=== PATIENT | male | born 1950 | race Caucasian/White ===

== ENCOUNTER → 2017-07-16 11:55 | Outpatient (CLI) | payer MEDICARE, OTHER, SELFPAY ==
--- NOTE | 2017-07-16 | DI.CT.S_ITS ---
PROCEDURE: CT CHEST ABD PEL W CON INDICATIONS: NEOPLASM OF BLADDER TECHNIQUE: After the administration of oral and intravenous contrast, 5 mm thick sections acquired from the lung apices to the symphysis. 5 mm coronal and sagittal reformats were performed, with additional 7 mm coronal MIP reformats through the lungs. For radiation dose reduction, the following was used: automated exposure control, adjustment of mA and/or kV according to patient size. COMPARISON: [facility], CT, IVP (ABD & PEL WWO CONTRAST), 04/06/2017, 12:33. Outside Film, CT, CT CHEST WITHOUT CONTRAST, 05/14/2017, 11:11. [facility], CT, CT CHEST ABDOMEN PELVIS WITH CONTRAST, 05/31/2017, 14:29. FINDINGS: Image quality: Excellent. CHEST: Lungs and pleura: Anterior left upper lobe pulmonary nodule has decreased from 16 mm to 8 mm since last exam. Medial right lower lobe pulmonary nodule has decreased from 10 mm to 5 mm. Bilateral nodules in the posterior lower lobes show evidence of central necrosis and have decreased in size from 19 mm to 10 mm on the right and 14 mm to 8 mm on the left. Similar reduction in size is evident in additional smaller nodules. No new nodules or acute airspace opacities. No pleural effusions or pneumothorax. Central and peripheral airways appear patent and normal in caliber. Mediastinum: Heart size is normal. No pericardial effusion. No mediastinal or hilar adenopathy by size criteria. Thoracic aorta and central pulmonary arteries are normal in size. Esophagus is normal in caliber. No hiatal hernia. Chest wall: Left-sided port with tip in the SVC. No axillary or supraclavicular adenopathy by size criteria. Thyroid gland appears normal. Bilateral gynecomastia. ABDOMEN: Solid organs: Liver is normal in size and enhancement. Biliary system is non dilated. Pancreas is atrophic. Spleen is mildly enlarged at 13.3 cm craniocaudal, normal in enhancement. No adrenal nodules. Kidneys demonstrate normal size and enhancement, without hydronephrosis. Peritoneum and bowel: Small bowel loops demonstrate normal wall thickness and caliber. The normal appendix. There is new diffuse wall thickening in the cecum and proximal ascending colon, indeterminate No fat stranding, free fluid or free air. Nodes and vessels: Numerous surgical clips surround the inferior vena cava, liver margin and purnima hepatis, gallbladder surgically absent. No retroperitoneal or mesenteric adenopathy by size criteria. Aorta and inferior vena cava are normal in size. Miscellaneous: No ventral hernias. PELVIS: Genitourinary: Bladder wall tumor has decreased in size, wall thickness at 9 mm compared to 17 mm on prior. Miscellaneous: Fat filled left inguinal hernias, no adenopathy. Bones: No suspicious bony lesions. No vertebral body compression fractures. IMPRESSION: 1. Diminished size of the urinary bladder cancer. Diminished size of multiple pulmonary metastases. No evidence of new metastatic disease. 2. Diffuse wall thickening of the cecum and proximal ascending colon, nonspecific and compatible with focal colitis. No appreciable pericecal fatty infiltration or fluid collection. Normal appendix. 3. Status post cholecystectomy. 4. Mild splenomegaly. 5. Fat filled left inguinal hernia. Dictated by: Mickey Wolf M.D. on 07/16/2017 at 13:38 Approved by: Mickey Wolf M.D. on 07/16/2017 at 14:02
== END ==
PROVIDERS: PCP Family Medicine; Visit Provider Internal Medicine Hematology & Oncology
DX: C67.9 Malignant neoplasm of bladder, unspecified (principal); C78.00 Secondary malignant neoplasm of unspecified lung; K40.90 Unilateral inguinal hernia, without obstruction or gangrene, not specified as recurrent
CPT/HCPCS: 71260; 74177; Q9967

== ENCOUNTER → 2017-09-03 10:58 | Outpatient (CLI) | payer MEDICARE, OTHER, SELFPAY ==
--- NOTE | 2017-09-03 | DI.CT.S_ITS ---
PROCEDURE: CT CHEST ABD PEL W CON INDICATIONS: MALIGNANT NEOPLASM OF BLADDER TECHNIQUE: After the administration of oral and intravenous contrast, 5 mm thick sections acquired from the lung apices to the symphysis. 5 mm coronal and sagittal reformats were performed, with additional 7 mm coronal MIP reformats through the lungs. For radiation dose reduction, the following was used: automated exposure control, adjustment of mA and/or kV according to patient size. COMPARISON: [facility], CT, CT CHEST ABD PEL W CON, 07/16/2017, 12:58. FINDINGS: Image quality: Excellent. CHEST: Lungs and pleura: Multiple bilateral pulmonary nodules are stable to slightly decreased in size from prior exam, with the largest measuring up to 8 mm in the left upper lobe. No pleural effusion or pneumothorax. Mediastinum: Heart size is normal. There is a small pericardial effusion. There is no mediastinal or hilar lymphadenopathy. Chest wall: No axillary or supraclavicular adenopathy by size criteria. Thyroid gland is unchanged from prior exam. There is bilateral gynecomastia. ABDOMEN: Solid organs: Postsurgical changes surrounding the inferior vena cava are stable. No intrahepatic lesions. Gallbladder surgically absent. No intrahepatic or extra hepatic biliary ductal dilatation. There is diffuse fatty atrophy of the pancreatic parenchyma. The spleen appears unremarkable. No abnormal adrenal nodules are identified. There is mild bilateral perinephric fat stranding. No hydronephrosis. Peritoneum and bowel: Previously noted cecal wall thickening is decreased from prior exam. Nodes and vessels: No retroperitoneal or mesenteric adenopathy by size criteria. Aorta and inferior vena cava are normal in size. PELVIS: Genitourinary: There is diffuse but stable bladder wall thickening given the degree of distention. Miscellaneous: There is a fat-containing left indirect inguinal hernia. Bones: Subcentimeter sclerotic foci within the right sacrum are stable when compared with prior exam, and may represent bone islands rather than metastatic disease. IMPRESSION: #1. Multiple bilateral pulmonary metastases are stable to slightly decreased in size from prior exam. Stable diffuse bladder wall thickening. #2. Interval decrease in previously noted diffuse cecal wall thickening, suggesting improving colitis. Attention on followup exams recommended. Dictated by: Kimani Reeves M.D. on 09/03/2017 at 13:21 Approved by: Kimani Reeves M.D. on 09/03/2017 at 13:33
[2017-09-03 11:54] LABS: Alanine Aminotransferase 36 IU/L (21-72); Albumin 4.5 g/dL (3.5-5.0); Albumin Globulin Ratio 1.8 (1.0-2.8); Alkaline Phosphatase 74 U/L (38-126); Aspartate Aminotransferase 28 IU/L (17-59); Bilirubin Total 1.2 mg/dL (0.2-1.3); Blood Urea Nitrogen 21 mg/dL (9-20); Calcium 9.1 mg/dL (8.4-10.2); Carbon Dioxide 31 mmol/L (22-32); Chloride 103 mmol/L (98-107); Estimated Glomerular Filt Rate > 60.0 mL/min (>60); Globulin 2.5 g/dL (1.7-4.1); Glucose 110 mg/dL (80-110); HEMOLYSIS < 15 (0-50); Lactate Dehydrogenase 548 U/L (313-618); Magnesium 2.3 mg/dL (1.6-2.3); Potassium 4.8 mmol/L (3.4-5.1); Sodium 142 mmol/L (137-145)
[2017-09-03 12:07] LABS: Hematocrit 33.1 % (41-53); Hemoglobin 11.4 g/dL (13.5-17.5); Mean Corpuscular HGB Conc 34.5 % (30-36); Mean Corpuscular Volume 104.4 fL (80-100); Platelet Count 185 X10^3/uL (150-400); Red Blood Cell Count 3.17 X10^6/uL (4.5-5.9); Red Cell Distribution Width 18.9 % (11.6-14.8); White Blood Cell Count 5.6 X10^3/uL (4.5-11.0)
[2017-09-03 12:08] LABS: Add Manual Diff / Slide Review YES
[2017-09-03 12:48] LABS: Neutrophils Absolute Manual 4032 /uL (3000-5900); Nucleated Red Blood Cells 1 #/Diff; Total Cells Counted 100
[2017-09-03 12:49] LABS: Anisocytosis 2+; Macrocytosis 1+
== END ==
PROVIDERS: PCP Family Medicine; Visit Provider Internal Medicine Hematology & Oncology
DX: C67.9 Malignant neoplasm of bladder, unspecified (principal); C78.02 Secondary malignant neoplasm of left lung; C78.01 Secondary malignant neoplasm of right lung
CPT/HCPCS: 36415; 71260; 74177; 80053; 83615; 83735; 85025; Q9967

== ENCOUNTER → 2017-10-15 10:19 | Outpatient (CLI) | payer MEDICARE, OTHER, SELFPAY ==
--- NOTE | 2017-10-15 | DI.CT.S_ITS ---
PROCEDURE: CT CHEST ABD PEL W CON INDICATIONS: NEOPLASM OF BLADDER SURVEILLANCE TECHNIQUE: After the administration of oral and intravenous contrast, 5 mm thick sections acquired from the lung apices to the symphysis. 5 mm coronal and sagittal reformats were performed, with additional 7 mm coronal MIP reformats through the lungs. For radiation dose reduction, the following was used: automated exposure control, adjustment of mA and/or kV according to patient size. COMPARISON: [facility], CT, CT CHEST ABD PEL W CON, 09/03/2017, 12:35. FINDINGS: Image quality: Excellent. CHEST: Lungs and pleura: 6 subcentimeter nodules are again seen scattered in bilateral lung browne measures up to 7 mm in size in anterior aspect of left apex, unchanged in size and appearance from most recent study. No new pulmonary nodule or mass is seen. No pleural effusions or pneumothorax. Central and peripheral airways appear patent and normal in caliber. Mediastinum: Heart size is normal. No pericardial effusion. No mediastinal or hilar adenopathy by size criteria. Thoracic aorta and central pulmonary arteries are normal in size. Esophagus is normal in caliber. Small hiatal hernia is again seen. Chest wall: No axillary or supraclavicular adenopathy by size criteria. Thyroid gland is unchanged in appearance compared to previous study. Left chest wall Port-A-Cath tip is in the region of SVC. ABDOMEN: Solid organs: Liver is normal in size and enhancement. Mild hepatic steatosis is seen. Gallbladder is surgically absent. Biliary system is non dilated. Pancreas is atrophic, unchanged from previous study. Spleen is mildly enlarged. No discrete splenic lesion is noted. No adrenal nodules. Kidneys demonstrate normal size and enhancement, without hydronephrosis. Peritoneum and bowel: There is no bowel obstruction. No free fluid or free air. Previously noted cecal wall thickening is again seen with mild narrowing of the lumen. No definite cecal wall mass is noted. Nodes and vessels: No retroperitoneal or mesenteric adenopathy by size criteria. Aorta and inferior vena cava are normal in size. Post surgical changes in the proximal SVC are again seen. Miscellaneous: No ventral hernias. PELVIS: Genitourinary: Diffuse bladder wall thickening is again seen, not significant changed in appearance from previous study. Miscellaneous: Fat-containing left inguinal hernia is again seen. No pelvic adenopathy is noted. Bones: Previously noted subcentimeter sclerotic foci within right sacrum are unchanged in size and appearance. No new suspicious bony lesion is noted. No acute fracture or dislocation. IMPRESSION: 1. Stable bilateral subcentimeter pulmonary nodules, unchanged from previous study. No new pulmonary nodule or mass is identified. Bilateral lungs are otherwise clear. 2. Stable appearing diffuse cecal wall beginning which may indicate colitis. No definite mass is seen. 3. No evidence of adenopathy in chest, abdomen or pelvis. 4. Mild splenomegaly, no discrete splenic lesion. 5. Diffuse bladder wall thickening, not significantly changed from previous study. No hydronephrosis. Dictated by: Speedy Wood M.D. on 10/15/2017 at 14:18 Approved by: Speedy Wood M.D. on 10/15/2017 at 14:53
[2017-10-15 10:58] LABS: Blood Urea Nitrogen 22 mg/dL (9-20); Estimated Glomerular Filt Rate > 60.0 mL/min (>60)
== END ==
PROVIDERS: PCP Family Medicine; Visit Provider Internal Medicine Hematology & Oncology
DX: C67.9 Malignant neoplasm of bladder, unspecified (principal); R91.8 Other nonspecific abnormal finding of lung field; R16.1 Splenomegaly, not elsewhere classified
CPT/HCPCS: 36415; 71260; 74177; 82565; 84520; Q9967

== ENCOUNTER → 2017-11-27 09:48 | Outpatient (CLI) | payer MEDICARE, OTHER, SELFPAY ==
--- NOTE | 2017-11-27 | DI.CT.S_ITS ---
PROCEDURE: CT CHEST ABD PEL W CON INDICATIONS: NEOPLASM OF BLADDER TECHNIQUE: After the administration of oral and intravenous contrast, 5 mm thick sections acquired from the lung apices to the symphysis. 5 mm coronal and sagittal reformats were performed, with additional 7 mm coronal MIP reformats through the lungs. For radiation dose reduction, the following was used: automated exposure control, adjustment of mA and/or kV according to patient size. COMPARISON: [facility], CT, CT CHEST ABD PEL W CON, 10/15/2017, 11:47. FINDINGS: Image quality: Excellent. CHEST: Lungs and pleura: No acute airspace opacities. Currently a total of 9 discrete bilateral pulmonary nodules can be seen within the lung parenchyma, all of which were previously present, all of which have increased in size and several of which were not previously detectable without benefit of the current CT showing enlargement to the degree that they could be accurately detected by CT scanning prophylactically. These range in size from 2 mm to 1.2 cm, and each has enlarged by 1-3 mm in all dimensions. No pleural effusions or pneumothorax. Central and peripheral airways appear patent and normal in caliber. Mediastinum: Heart size is normal. No pericardial effusion. No mediastinal or hilar adenopathy by size criteria. Thoracic aorta and central pulmonary arteries are normal in size. Esophagus is normal in caliber. No hiatal hernia. Chest wall: No axillary or supraclavicular adenopathy by size criteria. Thyroid gland appears normal. ABDOMEN: Solid organs: Liver is normal in size and enhancement. Gallbladder has been previously resected. Biliary system is non dilated. Pancreas enhances normally. Spleen is normal in size and enhancement. No adrenal nodules. Kidneys demonstrate normal size and enhancement, without hydronephrosis. Peritoneum and bowel: Bowel loops demonstrate normal wall thickness and caliber. No free fluid or air. Nodes and vessels: No retroperitoneal or mesenteric adenopathy by size criteria. Aorta and inferior vena cava are normal in size. Miscellaneous: No ventral hernias. PELVIS: Genitourinary: Bladder wall thickness is normal. The bladder is well filled by urine, allowing better visualization of the malignant-appearing mass enlarging the bladder wall thickness at the mid bladder level, left posterolateral border. This mass has tapering borders both anteriorly and posteriorly and has an estimated maximal AP dimension including the tapering of up to 5.1 cm AP, 1.3 cm transverse, and 5.6 cm craniocaudad. There is indistinct margination of the lateral border of this mass, with what appears to be direct extension of a small amount of tumor into the adjacent perivesicular fat, best seen on series 4 image 39 (coronal reformat imaging). The mass is immediately adjacent to the course of the far distal left ureter just above its insertion. Miscellaneous: No inguinal hernias or adenopathy. Bones: No suspicious bony lesions. No vertebral body compression fractures. IMPRESSION: 1. There are now 9 visualized pulmonary metastatic lesions, 6 of which were visualized previously 10/15/17. Each of these lesions show definite but mild interval enlargement as discussed above and 3 of these lesions now become accurately detectable by CT scanning despite there presents as a minute radiodensity previously. At the right lung base the largest lesion has enlarged by at least 3 mm in all dimensions but generally the enlargement is 1-2 mm in each dimension. 2. Mild interval enlargement of a left posterolateral bladder wall mass which is fusiform, and appears to penetrate into the perivesicular extraperitoneal fat along the left margin of the bladder mass, but only several millimeters. This mass shows increased enhancement and a small amount of dystrophic calcification along its luminal border. No adjacent or regional adenopathy has developed. 3. Left-sided Port-A-Cath extends into the superior vena cava and into the upper aspect of the right atrium. Dictated by: Neville Vail M.D. on 11/27/2017 at 15:40 Approved by: Neville Vail M.D. on 11/27/2017 at 15:57
[2017-11-27 10:17] LABS: BUN Creatinine Ratio 25.6 (6-22); Blood Urea Nitrogen 23 mg/dL (9-20); Calcium 9.2 mg/dL (8.4-10.2); Carbon Dioxide 34 mmol/L (22-32); Chloride 102 mmol/L (98-107); Estimated Glomerular Filt Rate > 60.0 mL/min (>60); Glucose 113 mg/dL (80-110); HEMOLYSIS < 15 (0-50); Potassium 4.5 mmol/L (3.4-5.1); Sodium 144 mmol/L (137-145)
== END ==
PROVIDERS: PCP Family Medicine; Visit Provider Internal Medicine Hematology & Oncology
DX: C67.9 Malignant neoplasm of bladder, unspecified (principal); C78.00 Secondary malignant neoplasm of unspecified lung
CPT/HCPCS: 36415; 71260; 74177; 80048; Q9967

== ENCOUNTER → 2018-01-22 11:00 | Outpatient (CLI) | payer MEDICARE, OTHER, SELFPAY ==
--- NOTE | 2018-01-22 | DI.CT.S_ITS ---
PROCEDURE: CT CHEST ABD PEL W CON INDICATIONS: Neoplasm of unspecified behavior of bladder TECHNIQUE: After the administration of intravenous contrast, 5 mm thick sections acquired from the lung apices to the symphysis. 5 mm coronal and sagittal reformats were performed, with additional 7 mm MIP reformats through the lungs. For radiation dose reduction, the following was used: automated exposure control, adjustment of mA and/or kV according to patient size. COMPARISON: [facility], CT, CT CHEST ABD PEL W CON, 11/27/2017, 11:20. FINDINGS: Image quality: Excellent. CHEST: Lungs and pleura: No acute consolidation. There are numerous bilateral scattered pulmonary metastases which are mostly unchanged although there is slight interval enlargement of a dominant right nodule in the right lower lobe measuring 1.7 x 1.8 cm, previously 1.5 x 1.3 cm. There is also slight interval enlargement of a left apical nodule measure 1.8 x 1.8 cm, presumably 4 x 1.4 cm No pleural effusions or pneumothorax. Central and peripheral airways appear patent and normal in caliber. Mediastinum: Heart size is normal. No pericardial effusion. No mediastinal or hilar adenopathy by size criteria. Thoracic aorta and central pulmonary arteries are normal in size. Esophagus is normal in caliber. No hiatal hernia. Chest wall: No axillary or supraclavicular adenopathy by size criteria. Thyroid gland negative. ABDOMEN: Solid organs: Liver is normal in size and enhancement. Gallbladder not seen presumably surgically absent. Biliary system is non dilated. Pancreas enhances normally. Spleen is normal in size and enhancement. No adrenal nodules. Kidneys demonstrate normal size and enhancement, without hydronephrosis. Peritoneum and bowel: Bowel loops demonstrate normal wall thickness and caliber. No free fluid or air. Nodes and vessels: No retroperitoneal or mesenteric adenopathy by size criteria. Aorta and inferior vena cava are normal in size. Miscellaneous: No ventral hernias. PELVIS: Genitourinary: Left posterior bladder wall thickening as before, grossly unchanged. Nonspecific low attenuation nodule measuring 9 mm seen adjacent to the anterior left aspect of the bladder on image 120 series 2, technically indeterminate. Miscellaneous: Small fat-containing left inguinal hernia. Bones: No suspicious bony lesions. Subcentimeter sclerotic foci present within the right sacral ala. These are unchanged. No vertebral body compression fractures. IMPRESSION: Redemonstration of diffuse bilateral pulmonary metastases, with slight interval enlargement as detailed above Unchanged appearance of left posterior bladder wall thickening. Elsewhere, grossly stable examination. Dictated by: Markie Hamilton M.D. on 01/22/2018 at 16:46 Approved by: Markie Hamilton M.D. on 01/22/2018 at 16:59
== END ==
PROVIDERS: Family Provider Urology; PCP Family Medicine; Visit Provider Internal Medicine Hematology & Oncology
DX: D49.4 Neoplasm of unspecified behavior of bladder (principal); C34.92 Malignant neoplasm of unspecified part of left bronchus or lung; C34.91 Malignant neoplasm of unspecified part of right bronchus or lung
CPT/HCPCS: 71260; 74177; Q9967

== ENCOUNTER → 2018-04-22 07:51 | Outpatient (CLI) | payer MEDICARE, OTHER, SELFPAY ==
--- NOTE | 2018-04-22 | DI.CT.S_ITS ---
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 5 mm coronal and sagittal reformats were performed, with additional 7 mm coronal MIP reformats through the lungs. For radiation dose reduction, the following was used: automated exposure control, adjustment of mA and/or kV according to patient size. COMPARISON: [facility], CT, CT CHEST ABD PEL W CON, 01/22/2018, 12:07. [facility], CT, CT CHEST ABD PEL W CON, 11/27/2017, 11:20. FINDINGS: Image quality: Excellent. CHEST: Lungs and pleura: A lobulated lung mass anterior left apex has enlarged from 01/22/18 from 1.8 cm to now 2.4 cm. A posterior right upper lobe ovoid nodule seen on series 3 image 19 is not enlarged. A posterior medial left superior segment nodule abutting the pleural surface has enlarged from 9 mm to 12 mm (series 3 image 22 a lateral right upper lobe nodule slightly more inferiorly seen on image 24 has only slightly additional pulmonary nodules at the lung bases are again seen bilaterally, a number of which have not enlarged but a lobulated mass at the right lung base just above the diaphragm level has enlarged from 1.9 cm in maximal dimension to 2.3 cm currently. No pleural effusions or pneumothorax. Central and peripheral airways appear patent and normal in caliber. Mediastinum: Heart size is normal. No pericardial effusion. No mediastinal or hilar adenopathy by size criteria. Thoracic aorta and central pulmonary arteries are normal in size. Esophagus is normal in caliber. No hiatal hernia. Chest wall: No axillary or supraclavicular adenopathy by size criteria. Thyroid gland appears normal were well visualized. ABDOMEN: Solid organs: Liver is normal in size and enhancement. Gallbladder appears resected. Biliary system is non dilated. Pancreas enhances normally. Spleen is normal in size and enhancement. No adrenal nodules. Kidneys demonstrate normal size and a new finding of asymmetric enhancement, diminished on the left, with a new finding of moderate left hydronephrosis. Peritoneum and bowel: Bowel loops demonstrate normal wall thickness and caliber. No free fluid or air. Nodes and vessels: No retroperitoneal or mesenteric adenopathy by size criteria. Aorta and inferior vena cava are normal in size. Miscellaneous: No ventral hernias. PELVIS: Genitourinary: Bladder wall thickness is normal. Miscellaneous: No inguinal hernias or adenopathy. Note is made of further enlargement of a mass within the bladder along the mucosal surface at the distal left ureteral insertion, now measuring up to 5.5 cm oblique AP and 2.4 cm transverse. This has at least doubled in volume when compared to the most recent CT through this area 01/22/18. Bones: No suspicious bony lesions. No vertebral body compression fractures. IMPRESSION: 1. Multifocal pulmonary metastatic disease with definite mild to moderate interval enlargement in size of a number of the lesions present. Additional lesions show no definite enlargement. The largest mass currently identified is at the right lung base, has enlarged, but no definite new lesions are seen. 2. New finding of moderate hydronephrosis left kidney with hydroureter extending to the bladder level. Renal cortical enhancement is globally mildly diminished on the left. The mass lesion present within the bladder lumen that covers the ureteral insertion into the bladder on the left has definitely enlarged, approximately doubling in overall volume with reference to the comparison CT from 01/22/18. Dictated by: Neville Vail M.D. on 04/22/2018 at 11:46 Approved by: Neville Vail M.D. on 04/22/2018 at 11:59
== END ==
PROVIDERS: Family Provider Urology; PCP Family Medicine; Visit Provider Internal Medicine Hematology & Oncology
DX: C67.9 Malignant neoplasm of bladder, unspecified (principal); C78.00 Secondary malignant neoplasm of unspecified lung; N13.30 Unspecified hydronephrosis
CPT/HCPCS: 71260; 74177; Q9967

== ENCOUNTER → 2018-05-20 14:36 | Outpatient (CLI) | payer MEDICARE, OTHER, SELFPAY ==
--- NOTE | 2018-05-20 | DI.MRI.S_ITS ---
PROCEDURE: MR HEAD/BRAIN WO CON INDICATIONS: URINARY BLADDER CANCER. NEW ONSET OF LEFT SIDED HEADACHES TECHNIQUE: Noncontrast axial T1 spin echo, axial T2 fast spin echo, sagittal and axial FLAIR, coronal T2 fast spin echo, axial gradient echo, axial diffusion and ADC through the brain. COMPARISON: None. FINDINGS: Image quality: Excellent. CSF Spaces: Basal cisterns are patent. No extra-axial fluid collections. Ventricles are normal in size and shape. Brain: There is a 2.3 x 2.3 x 3.1 cm left parietal mass which has cystic and solid components. There is a 1.2 x 1.6 x 1.7 cm in anomaly cystic mass in the left parietal lobe posterior and inferior to the previous described left parietal lobe lesion. Vasogenic edema is noted adjacent to the left parietal mass is which is having mass effect on the occipital horn with the left lateral ventricle. No intracranial hemorrhage. Rodríguez/white matter interface is normal. Brainstem appears normal. Diffusion-weighted images demonstrate no acute ischemic insult. No chronic ischemic insults. Normal intravascular flow voids are present. Skull and face: Calvarium has normal marrow signal. Orbits appear normal. Sinuses: Small polyp noted in the right maxillary sinus. The mastoids are clear. IMPRESSION: 1. Probable 2.3 x 2.3 x 3.1 and 1.1 x 1.6 x 1.7 cm left parietal metastatic lesions. 2. Vasogenic edema associated with probable left parietal metastatic lesions is having local mass effect on the occipital horn of left lateral ventricle. 3. Findings discussed with Sinai Rendon RN at Dr. Ferguson's office on 05/20/2018 at 1403 hrs. Dictated by: Sujey Oliveira MD, PhD on 05/20/2018 at 15:53 Approved by: Sujey Oliveira MD, PhD on 05/20/2018 at 16:04
--- NOTE | 2018-05-20 | DI.CT.S_ITS ---
PROCEDURE: CT CHEST W CON INDICATIONS: URINARY BLADDER CANCER TECHNIQUE: After the administration of intravenous contrast, 5 mm thick sections acquired from the pulmonary apices to the posterior costophrenic angles. 7 mm thick coronal and sagittal MIP reformats were acquired. For radiation dose reduction, the following was used: automated exposure control, adjustment of mA and/or kV according to patient size. COMPARISON: [facility], CT, CT CHEST ABD PEL W CON, 04/22/2018, 9:06. FINDINGS: Image quality: Excellent. Lungs and pleura: Previously described 2.4 cm lobulated mass in anterior medial left apex no measures 2.6 x 2.3 cm in size series 3 image 16. Previously described lateral right upper lobe nodule also increased in size from 6 mm to 9 mm on the current study series 3 image 19. 6 mm nodule in lateral aspect of right upper lobe now measures 8 mm in size series 3 image 24. Previously described medial left superior segment nodule now measures 14 mm in size compared to 12 mm on previous study series 3 image 22. The 4 mm nodule in anterior medial aspect of right middle lobe now measures 3 mm in size series 3 image 32. 8 and 10 mm nodule is also noted in right and lower lobe series 3 image 32, previously measured as 4 and 7 mm in size. 1.8 cm posterior left lower lobe nodule is seen previously measures 14 mm in size series 3 image 39. 12 and 9 mm nodules are noted in posterior right lower lobe previously measures 10 and 6 mm series 3 image 39 and 40. Previously described 2.3 cm lobulated mass in central right lower lobe near right lung base now measures 2.7 x 2.6 cm in size series 3 image 48. No pleural effusions or pneumothorax. Central and peripheral airways are patent and normal in caliber. Mediastinum: Heart size is normal. No pericardial effusion. No mediastinal or hilar adenopathy by size criteria. Thoracic aorta and central pulmonary arteries are normal in size. Esophagus is normal in caliber. No hiatal hernia. Bones and chest wall: No suspicious bony lesions. No vertebral body compression fractures. No axillary or supraclavicular adenopathy by size criteria. Thyroid gland is within normal limits. Abdomen: Visualized upper abdominal solid organs appear normal. Upper abdominal bowel loops are normal in caliber. Numerous surgical clips in right upper quadrant and abdomen are seen. IMPRESSION: 1. Interval further increase in size of patient's known numerous bilateral pulmonary nodules with the largest lesion involving right lower lobe and measures 2.7 x 2.6 cm in size as described above. Finding is suggestive of progression of pulmonary metastatic disease. No pleural effusion or pneumothorax. Airway is patent. 2. No gross mediastinal or hilar lymphadenopathy. Dictated by: Speedy Wood M.D. on 05/20/2018 at 16:44 Approved by: Speedy Wood M.D. on 05/20/2018 at 16:52
== END ==
PROVIDERS: PCP Family Medicine; Visit Provider Internal Medicine Hematology & Oncology
DX: C67.9 Malignant neoplasm of bladder, unspecified (principal); G93.9 Disorder of brain, unspecified; G93.6 Cerebral edema; R91.8 Other nonspecific abnormal finding of lung field
CPT/HCPCS: 70551; 71260; Q9967

== ENCOUNTER 2018-06-09 12:25 | Emergency (ER) | payer MEDICARE, OTHER, SELFPAY ==
[2018-06-09 13:13] VITALS: BP 151/95; PULSE 87; RESP 18; TEMP 37; O2SAT 99
--- NOTE | 2018-06-09 13:58 | PC.NURSE ---
hx of bladder cancer, pt reports urinary retention , only has dribbles. requesting estrada insertion and will follow up with doctors tomorrow. denies fever.
[2018-06-09 14:16] LABS: Bacteria Urine None Seen
[2018-06-09 14:18] LABS: Appearance Urine UA SL CLOUDY; Bilirubin Urine UA NEGATIVE (NEGATIVE); Color Urine UA RED; Glucose Urine UA NEGATIVE (Negative); Ketones Urine UA NEGATIVE (NEGATIVE); Leukocyte Esterase Urine UA TRACE (NEGATIVE); Nitrite Urine UA NEGATIVE (Negative); Occult Blood Urine UA 3+ (Negative); Protein Urine UA 1+ (Negative); Specific Gravity Urine UA 1.015 (1.000-1.035); Urobilinogen Urine UA 0.2 E.U./dL (0.2)
[2018-06-09 14:19] VITALS: BP 137/91; PULSE 73; RESP 16; O2SAT 100
[2018-06-09 14:32] LABS: Culture Indicated Urine Specimen Cultured; RBC Urine >100/HPF (0-5/HPF); Squamous Epithelial Cell Urine None Seen (0-5/HPF); WBC Urine 1-5/HPF (0-5/HPF)
[2018-06-09 15:25] VITALS: BP 121/75; PULSE 65; RESP 16; O2SAT 100
--- NOTE | 2018-06-09 18:56 | ED_ITS ---
HPI - Male Genitourinary <OLVIN Machado - Last Filed: 06/09/18 18:56> General Chief complaint: Urogenital-Male Stated complaint: Hemoteria Time Seen by Provider: 06/09/18 14:48 Source: patient and family Mode of arrival: ambulatory Limitations: no limitations History of Present Illness HPI Narrative: The patient is a 67-year-old male nonsmoker with history of bladder cancer who presents with his for chief complaint of urinary retention. He was not able to urinate for 6 hours. He states that this has happened before and he has needed a catheter. He denies any fevers dysuria urgency or frequency. He states his urine is bloody, which has been consistent since his diagnosis bladder cancer. He denies any abdominal pain other than bladder pressure prior to Hunter insertion. Related Data Home Medications Medication Instructions Recorded Confirmed CA PANTOTHENATE/FOLIC ACID/VIT 1 tab PO QDAY #0 06/13/12 05/10/18 (MULTIVITAMIN) CALCIUM ACETATE (PHOSLO~) 667 mg PO QDAY #0 06/13/12 05/10/18 magnesium oxide 500 mg PO QDAY #0 06/13/12 05/10/18 omega 6-pev-dwl-fish oil [Fish Oil] 1,000 mg PO QDAY #0 05/28/17 05/10/18 sildenafil [Viagra] Unknown #0 05/28/17 05/10/18 acetaminophen 500 mg tablet 325 mg PO PRN #0 tab 05/10/18 05/10/18 tacrolimus 1 mg capsule 0.5 mg PO BID #0 cap 05/10/18 05/10/18 Previous Rx's Medication Instructions Recorded tamsulosin [Flomax] 0.4 mg PO QDAY #90 cap 01/25/[address] See Rx Instructions .ROUTE 05/10/18 .COMPLEX #1 each Allergies Allergy/AdvReac Type Severity Reaction Status Date / Time lactose [LACTOSE] Allergy Unknown Verified 05/10/18 14:13 oxycodone [OXYCODONE] Allergy Unknown Verified 05/10/18 14:13 Review of Systems <OLVIN Machado - Last Filed: 06/09/18 18:56> Review of Systems GENERAL: Denies chills, fatigue, malaise, fever, sweats. HEENT: Denies sinus pain, ear pain, sore throat, difficulty swallowing, dizziness. RESPIRATORY: Denies dyspnea, cough, wheezing, hemoptysis, sputum. CARDIOVASCULAR: Denies chest pain, palpitations, orthopnea, edema, GASTROINTESTINAL: Denies nausea, vomiting, abdominal pain, diarrhea, constipation, melena. : See HPI MUSCULOSKELETAL: denies weakness, joint pain, or bony pain SKIN: Denies rash, skin lesions, or other NEUROLOGIC: Denies weakness, headache, numbness, change in speech, confusion, seizures, incoordination. PSYCHIATRIC: No concerning psychosocial issues. 12 point review of systems is negative except for those stated above PFSH <OLVIN Machado - Last Filed: 06/09/18 18:56> Medical History Bladder cancer (Acute ~04/2017) Pulmonary metastasis (Acute ~04/2017) Pulmonary nodule (Acute ~04/2017) BPH (benign prostatic hyperplasia) (Chronic 2012) Eczema (Chronic 2004) Glaucoma (Chronic Unknown) Hearing loss (Chronic 2011) Hemorrhoids (Chronic 1992) Tinnitus of both ears (Chronic 1991) Liver disease (Resolved 2004) Measles (Resolved ~1960) Mumps (Resolved ~1960) Surgical History Hx of hernia repair (Resolved Unknown) Hx of liver transplant (Resolved 05/2007) Hx of transurethral resection of prostate (Resolved 04/2017) Status post knee surgery (1985) Family History Father No problems noted. Mother No problems noted. Grandmother No problems noted. Social History Smoking Status: Never smoker Family History Father No problems noted. Mother No problems noted. Grandmother No problems noted. Social History Smoking Status: Never smoker Exam <OLVIN Machado - Last Filed: 06/09/18 18:56> Narrative Exam Narrative: GENERAL: This is a well-nourished, well-developed patient, no acute distress HEAD: Atraumatic. Normocephalic. No temporal or scalp tenderness. EYES: Pupils equal round and reactive. Extraocular motions intact. No scleral icterus. No injection or drainage. CARDIOVASCULAR: Regular rate and rhythm RESPIRATORY: Clear to auscultation. Breath sounds equal bilaterally. No wheezes, rales, or rhonchi. No cough. No increased respiratory effort. GASTROINTESTINAL: Abdomen soft, non-tender, nondistended. No hepato- splenomegaly, or palpable masses. No guarding. active bowel sounds. Hunter catheter in place draining bloody urine with no obvious clots. EXTREMITIES: No clubbing, cyanosis, or edema. No joint tenderness, effusion, or edema noted. BACK: Nontender without deformity or crepitance. No flank tenderness. NEURO: AOx3. SKIN: No rash or erythema. Initial Vital Signs Initial Vital Signs: Vital Signs Temperature 98.6 F 06/09/18 13:13 Pulse Rate 87 06/09/18 13:13 Respiratory Rate 18 06/09/18 13:13 Blood Pressure 151/95 H 06/09/18 13:13 Pulse Oximetry 99 06/09/18 13:13 <Esther Kong DO - Last Filed: 06/15/18 19:04> Initial Vital Signs Initial Vital Signs: Vital Signs Temperature 98.6 F 06/09/18 13:13 Pulse Rate 87 06/09/18 13:13 Respiratory Rate 18 06/09/18 13:13 Blood Pressure 151/95 H 06/09/18 13:13 Pulse Oximetry 99 06/09/18 13:13 Course <MARTHA Machado-BC - Last Filed: 06/09/18 18:56> Orders Ordered: ED Orders 06/09/18 14:10 Urinalysis and Microscopic Stat Urine Culture Stat Vital Signs - 8 hr 06/09/18 13:13 06/09/18 14:19 06/09/18 15:25 Temperature 98.6 F Pulse Rate 87 73 65 Respiratory Rate 18 16 16 Blood Pressure 151/95 H Blood Pressure [Left Arm] 137/91 H 121/75 Pulse Oximetry 99 100 100 <DO Jennifer Butler Last Filed: 06/15/18 19:04> Orders Ordered: ED Orders 06/09/18 14:10 Urinalysis and Microscopic Stat Urine Culture Stat Vital Signs - 8 hr 06/09/18 13:13 06/09/18 14:19 06/09/18 15:25 Temperature 98.6 F Pulse Rate 87 73 65 Respiratory Rate 18 16 16 Blood Pressure 151/95 H Blood Pressure [Left Arm] 137/91 H 121/75 Pulse Oximetry 99 100 100 MDM - Male Genitourinary <MARTHA Machado-BC - Last Filed: 06/09/18 18:56> Lab Data Lab Results 06/09/18 Range/Units 14:10 Urine Color Red Urine Appearance Sl cloudy Urine pH 7.0 (4.5-8.0) Ur Specific [place] 1.015 (1.000-1.035) Urine Protein 1+ H (Negative) Urine Glucose (UA) Negative (Negative) g/dL Urine Ketones Negative (NEGATIVE) Urine Occult Blood 3+ H (Negative) Urine Nitrate Negative (Negative) Urine Bilirubin Negative (NEGATIVE) Urine Urobilinogen 0.2 (0.2) E.U./dL Ur Leukocyte Esterase Trace H (NEGATIVE) Urine RBC >100/hpf (0-5/HPF) Urine WBC 1-5/hpf (0-5/HPF) Ur Squamous Epith Cells None seen (0-5/HPF) Urine Bacteria None seen (None) Ur Culture Indicated? Specimen cultured MDM Narrative Medical decision making narrative: Patient is a 67-year-old male with history of bladder cancer who presents with chief complaint of urinary retention. Hunter was inserted with immediate drainage of over a L of urine. His urine is bloody, which has been normal for him since his bladder cancer diagnosis. However does not have any nitrites or bacteria at this point time. I am sending a urine culture to be on the safe side. Patient states understanding of care Hunter catheter at home. He states he has had several before. He does not have any signs of infection at this point time. He plans on following up with his urologist tomorrow. Discussed at length return precautions of Hunter not draining, fever etc. Patient and state understanding and have no questions or concerns upon discharge. <Esther Kong DO - Last Filed: 06/15/18 19:04> Lab Data Lab Results 06/09/18 Range/Units 14:10 Urine Color Red Urine Appearance Sl cloudy Urine pH 7.0 (4.5-8.0) Ur Specific [place] 1.015 (1.000-1.035) Urine Protein 1+ H (Negative) Urine Glucose (UA) Negative (Negative) g/dL Urine Ketones Negative (NEGATIVE) Urine Occult Blood 3+ H (Negative) Urine Nitrate Negative (Negative) Urine Bilirubin Negative (NEGATIVE) Urine Urobilinogen 0.2 (0.2) E.U./dL Ur Leukocyte Esterase Trace H (NEGATIVE) Urine RBC >100/hpf (0-5/HPF) Urine WBC 1-5/hpf (0-5/HPF) Ur Squamous Epith Cells None seen (0-5/HPF) Urine Bacteria None seen (None) Ur Culture Indicated? Specimen cultured Discharge Plan Departure Patient Disposition: Home Clinical Impression: Acute urinary retention Hematuria Qualifiers: Hematuria type: gross Qualified Code(s): R31.0 - Gross hematuria Discharge Date/Time: 06/09/18 15:35 Interventions: ED Discharge Assessment Last Done: 06/09/18 15:35 Instructions: How to Care for Your Hunter Catheter -- Male, DI for Urinary Retention in Men Activity Restrictions/Additional Instructions: Please follow-up with your healthcare providers as we discussed today. We are sending off a urine culture, to see if any thing grows from youe urine. Please follow up for any flank pain, inability keep down fluids, or other acute concerns as these are signs of infection. Come back to the emergency department if needed. Please monitor to make sure your Hunter is draining. Come back to emergency department if needed. Prescriptions: No Action handicap parking permit See Rx Instructions .ROUTE .COMPLEX Qty: 1 RF: 0 CA PANTOTHENATE/FOLIC ACID/VIT (MULTIVITAMIN) 1 tab PO QDAY Qty: 0 RF: 0 CALCIUM ACETATE (PHOSLO~) 667 mg PO QDAY Qty: 0 RF: 0 magnesium oxide 400 MG tablet 500 mg PO QDAY Qty: 0 RF: 0 tamsulosin [Flomax] 0.4 MG capsule,extended release 24hr 0.4 mg PO QDAY Qty: 90 RF: 1 sildenafil [Viagra] 25 MG tablet Unknown Qty: 0 RF: 0 omega 0-peq-lra-fish oil [Fish Oil] 1,000 MG capsule 1,000 mg PO QDAY Qty: 0 RF: 0 tacrolimus [Prograf] 1 mg capsule 0.5 mg PO BID Qty: 0 RF: 0 acetaminophen [Tylenol Extra Strength] 500 mg tablet 325 mg PO PRN Qty: 0 RF: 0 Referrals: Brittany Henning DO [Primary Care Provider] - <Esther Kong DO - Last Filed: 06/15/18 19:04> Cosign ED Attending Theodore Attestation: I was immediately available in the department for consultation. This documentation has been reviewed and I agree with assessment and plan. Supervised by Esther Kong DO
== END 2018-06-09 15:35 | disposition home or self-care (01) ==
PROVIDERS: Emergency Medicine; Emergency Provider Nurse Practitioner Family; PCP Family Medicine
DX: R33.8 Other retention of urine (principal); R31.0 Gross hematuria
CPT/HCPCS: 81001; 87086; 99283

== ENCOUNTER 2018-06-20 02:58 | Emergency (ER) | payer MEDICARE, OTHER, SELFPAY ==
[2018-06-20 03:00] VITALS: BP 160/80; PULSE 80; RESP 18; TEMP 36.6; O2SAT 98; BMI 28.0
--- NOTE | 2018-06-20 03:51 | ED_ITS ---
HPI - Male Genitourinary General Chief complaint: Urogenital-Male Stated complaint: URINARY BLOCKAGE Time Seen by Provider: 06/20/18 03:51 Source: patient Mode of arrival: ambulatory Limitations: no limitations History of Present Illness HPI Narrative: The patient has known bladder cancer with mets to the lung and brain. He is under treatment. He developed hematuria yesterday. He came in because he was feeling obstructed. He has previously required a Hunter due to hematuria and clotting. He was able to urinate and passed clots but was still feeling blocked. A Hunter was placed by the nurse caring for him prior to my entry to the room. He is having relief. He has significant hematuria noted after the Hunter catheter was placed. There is no associated testicular pain, abdominal pain, or back pain. He has had no fever. Related Data Home Medications Medication Instructions Recorded Confirmed CA PANTOTHENATE/FOLIC ACID/VIT 1 tab PO QDAY #0 06/13/12 05/10/18 (MULTIVITAMIN) CALCIUM ACETATE (PHOSLO~) 667 mg PO QDAY #0 06/13/12 05/10/18 magnesium oxide 500 mg PO QDAY #0 06/13/12 05/10/18 omega 9-cnu-fpn-fish oil [Fish Oil] 1,000 mg PO QDAY #0 05/28/17 05/10/18 sildenafil [Viagra] Unknown #0 05/28/17 05/10/18 acetaminophen 500 mg tablet 325 mg PO PRN #0 tab 05/10/18 05/10/18 tacrolimus 1 mg capsule 0.5 mg PO BID #0 cap 05/10/18 05/10/18 Previous Rx's Medication Instructions Recorded tamsulosin [Flomax] 0.4 mg PO QDAY #90 cap 01/25/[address] See Rx Instructions .ROUTE 05/10/18 .COMPLEX #1 each Allergies Allergy/AdvReac Type Severity Reaction Status Date / Time lactose [LACTOSE] Allergy Unknown Verified 05/10/18 14:13 oxycodone [OXYCODONE] Allergy Unknown Verified 05/10/18 14:13 Review of Systems Review of Systems ROS Unobtainable: All systems reviewed & are unremarkable except as noted in HPI and below Constitutional Denies chills, Denies fever(s), Denies lethargy and Denies weakness Cardiovascular Denies chest pain, Denies irregular heart rhythm, Denies lightheadedness, Denies palpitations, Denies dyspnea, Denies dyspnea on exertion and Denies orthopnea Respiratory Denies cough, Denies dyspnea, Denies dyspnea on exertion and Denies wheezing Gastrointestinal Gastrointestinal: Denies change in bowel habits, Denies diarrhea, Denies nausea and Denies vomiting Genitourinary Reports hematuria, Denies dysuria and Denies urinary urgency Musculoskeletal Denies back pain and Denies numbness Neurologic Denies numbness and Denies weakness Endocrine Denies palpitations Allergic/Immunologic Denies wheezing [facility] Medical History Bladder cancer (Acute ~04/2017) Pulmonary metastasis (Acute ~04/2017) Pulmonary nodule (Acute ~04/2017) BPH (benign prostatic hyperplasia) (Chronic 2012) Eczema (Chronic 2004) Glaucoma (Chronic Unknown) Hearing loss (Chronic 2011) Hemorrhoids (Chronic 1992) Tinnitus of both ears (Chronic 1991) Liver disease (Resolved 2004) Measles (Resolved ~1960) Mumps (Resolved ~1959) Surgical History Hx of hernia repair (Resolved Unknown) Hx of liver transplant (Resolved 05/2007) Hx of transurethral resection of prostate (Resolved 04/2017) Status post knee surgery (1985) Family History Father No problems noted. Mother No problems noted. Grandmother No problems noted. Social History Smoking Status: Never smoker Family History Father No problems noted. Mother No problems noted. Grandmother No problems noted. Social History Smoking Status: Never smoker Exam Initial Vital Signs Initial Vital Signs: Vital Signs Temperature 97.9 F 06/20/18 03:00 Pulse Rate 80 06/20/18 03:00 Respiratory Rate 18 06/20/18 03:00 Blood Pressure 160/80 H 06/20/18 03:00 Pulse Oximetry 98 06/20/18 03:00 Const General: cooperative and well developed Nutritional Appearance: well nourished Orientation: alert, awake, oriented x3 and not confused Resp Effort & Inspection: normal respiratory effort, able to speak in complete sentences, no respiratory distress and no use of accessory muscles Auscultation: clear to auscultation bilaterally, no rales, no rhonchi and no wheezes Cardio Rate: regular rate Rhythm: regular rhythm Heart Sounds: no click, no gallops, no murmurs and no rubs Pulses: normal peripheral pulses GI Inspection: non-distended Palpation: soft, no hepatosplenomegaly, No pulsatile mass and tender (Mild sup rapubic discomfort without guarding) Auscultation: normal bowel sounds Back/Spine/Pelvis Back: No CVA tenderness Skin General: no rashes or lesions noted, No jaundice and No petechiae Neuro General: alert, oriented x3, gait normal and no focal motor deficits Speech: speech normal Course Course Narrative: The patient has obtained relief with the Hunter catheter. The bladder was irrigated with normal saline prior to discharge. The Hunter will be left in place. He is advised to call his urologist for follow-up tomorrow. Vital Signs - 8 hr 06/20/18 03:00 Temperature 97.9 F Pulse Rate 80 Respiratory Rate 18 Blood Pressure 160/80 H Pulse Oximetry 98 Discharge Plan Departure Patient Disposition: Home Clinical Impression: Bladder cancer Qualifiers: Bladder location: unspecified site Qualified Code(s): C67.9 - Malignant neoplasm of bladder, unspecified Hematuria Qualifiers: Hematuria type: gross Qualified Code(s): R31.0 - Gross hematuria Instructions: DI for Hematuria Activity Restrictions/Additional Instructions: Drink plenty of water, stay well hydrated. Call your urologist tomorrow to arrange follow-up. Return to the ER as needed. Prescriptions: No Action handicap parking permit See Rx Instructions .ROUTE .COMPLEX Qty: 1 RF: 0 CA PANTOTHENATE/FOLIC ACID/VIT (MULTIVITAMIN) 1 tab PO QDAY Qty: 0 RF: 0 CALCIUM ACETATE (PHOSLO~) 667 mg PO QDAY Qty: 0 RF: 0 magnesium oxide 400 MG tablet 500 mg PO QDAY Qty: 0 RF: 0 tamsulosin [Flomax] 0.4 MG capsule,extended release 24hr 0.4 mg PO QDAY Qty: 90 RF: 1 sildenafil [Viagra] 25 MG tablet Unknown Qty: 0 RF: 0 omega 4-ohj-nwd-fish oil [Fish Oil] 1,000 MG capsule 1,000 mg PO QDAY Qty: 0 RF: 0 tacrolimus [Prograf] 1 mg capsule 0.5 mg PO BID Qty: 0 RF: 0 acetaminophen [Tylenol Extra Strength] 500 mg tablet 325 mg PO PRN Qty: 0 RF: 0 Referrals: Brittany Henning DO [Primary Care Provider] -
--- NOTE | 2018-06-20 04:34 | PC.NURSE ---
fFoley was irrigated with one liter sterile water and small clots noted,estrada draining light lobo colored drainage.
[2018-06-20 04:41] VITALS: BP 140/74; PULSE 76; RESP 18; O2SAT 99
== END 2018-06-20 04:42 | disposition home or self-care (01) ==
PROVIDERS: Emergency Provider Emergency Medicine; PCP Family Medicine
DX: R33.9 Retention of urine, unspecified (principal); R31.0 Gross hematuria; C67.9 Malignant neoplasm of bladder, unspecified
CPT/HCPCS: 51700; 51701; 51798; 99283

== ENCOUNTER → 2018-07-08 10:53 | Outpatient (CLI) | payer MEDICARE, OTHER, SELFPAY ==
--- NOTE | 2018-07-08 | DI.MRI.S_ITS ---
PROCEDURE: MR HEAD/BRAIN WO/W CON INDICATIONS: METASTATIC BLADDER CARCINOMA TECHNIQUE: Noncontrast axial T1 spin echo, axial T2 fast spin echo, sagittal and axial FLAIR, coronal T2 fast spin echo, axial gradient echo, axial diffusion and ADC through the brain. After the administration of contrast, axial and coronal T1 spin echo with fat saturation through the brain. COMPARISON: [facility], MR, MR HEAD/BRAIN WO CON, 05/20/2018, 15:16. FINDINGS: Image quality: Excellent. CSF spaces: Basal cisterns are patent. No extra-axial fluid collections. Ventricles are normal in size and shape. Brain: Within the left parietal lobe, there are again seen 2 cystic lesions. The more superior/anterior lesion measures 2.2 x 1.9 x 2.4 cm. The smaller more inferior/posterior lesion measures 1.1 x 1.1 x 1.7 cm. A few tiny solid components can be seen associated with the larger lesion. No significant enhancement can be seen. There is surrounding vasogenic edema seen, which is improved compared to the prior examination. No new masses are seen. No midline shift. There is cerebral volume loss for age. There is periventricular white matter chronic small vessel ischemic change. The brainstem appears normal. Diffusion-weighted images demonstrate no acute ischemic insults. No chronic ischemic insults. Normal intravascular flow voids are present. Skull and face: Calvarial marrow is normal in signal. Orbits appear normal. Sinuses: A small polyp versus mucus retention cyst can be seen within the right maxillary sinus. Sinuses and mastoids otherwise appear clear. IMPRESSION: Improved examination, with 2 cystic masses seen involving the left parietal lobe. These are improved compared to the prior MRI, each measuring slightly smaller than before. Furthermore, the amount of solid components associated with a largely decreased since the prior. The amount of surrounding vasogenic edema has also decreased. Dictated by: Alden Saenz M.D. on 07/08/2018 at 12:52 Approved by: Alden Saenz M.D. on 07/08/2018 at 12:58
== END ==
PROVIDERS: PCP Family Medicine; Visit Provider Radiology Radiation Oncology
DX: C67.9 Malignant neoplasm of bladder, unspecified (principal); C79.31 Secondary malignant neoplasm of brain
CPT/HCPCS: 70553; A9579

== ENCOUNTER → 2018-08-07 13:34 | Outpatient (CLI) | payer MEDICARE, OTHER, SELFPAY ==
--- NOTE | 2018-08-07 | DI.CT.S_ITS ---
PROCEDURE: CT CHEST ABD PEL WO CON INDICATIONS: BLADDER CANCER TECHNIQUE: After the administration of oral contrast, 5 mm thick sections acquired from the lung apices to the symphysis pubis. 5 mm thick coronal and sagittal reformats acquired, with additional 7 mm coronal MIP reformats through the lungs. For radiation dose reduction, the following was used: automated exposure control, adjustment of mA and/or kV according to patient size. COMPARISON: [facility], CT, CT CHEST ABD PEL W CON, 04/22/2018, 9:06. [facility], CT, CT CHEST W CON, 05/20/2018, 15:44. FINDINGS: Image quality: Somewhat diminished by absence of both intravenous and oral contrast.. CHEST: Lungs and pleura: There are multiple pulmonary metastatic nodules which appear to have generally enlarged. At the left anterior upper lobe a 2.7 x 2.3 cm mass has enlarged to 3.0 x 2.8 cm in the same areas. At the posterior right upper lobe slightly more inferiorly a mass previously measuring 1 cm in maximal dimension now measures up to 1.7 cm. Within the superior segment of the left lower lobe slightly more inferiorly a mass previously measuring up to 1.5 cm measures up to 2.0 cm. Within the right upper lobe laterally slightly more inferiorly a previously present 0.8 cm mass measures 1.5 cm. Within the right lower lobe just below the carinal level a previously present 9 mm nodule now measures up to 2.6 cm. At the lower lobes posteriorly at the same axial level a pair of right and left-sided nodules had measured 1.5 cm each previously and now measure up to 2.3 and 2.7 cm respectively. The largest mass located within the right lower lobe had previously measured 3.1 cm and now measures up to 4.4 cm. Additional nodules are present with similar enlarging measurements over time.. No pleural effusions or pneumothorax. Central and peripheral airways are patent are normal in caliber. Mediastinum: Heart size is normal. No pericardial effusion. No mediastinal adenopathy by CT size criteria. Thoracic aorta and central pulmonary arteries are normal in size. Esophagus is normal in caliber. No hiatal hernia. Chest wall: No axillary or supraclavicular adenopathy by size criteria. Thyroid gland appears normal where well seen. Port-A-Cath is in normal position from left-sided approach. ABDOMEN: Solid organs: Liver is normal in size, and at the inferior aspect of the right posterior hepatic segment a 2.9 cm rounded hypodensity has developed in an area previously free of this appearance on post contrast MR imaging of 04/22/18. Gallbladder appears to have been previously resected. Pancreas is normal in contours. Spleen is normal in size. No adrenal nodules. Both kidneys are normal in size, without nephrolithiasis. There has been worsening left-sided hydronephrosis and hydroureter to the bladder level. Peritoneum and bowel: Small and large bowel loops are normal in caliber and wall thickness. No free fluid or air. Nodes and vessels: No retroperitoneal or mesenteric adenopathy by size criteria. Aorta and inferior vena cava are normal in size. Miscellaneous: No ventral hernias. PELVIS: Genitourinary: Bladder wall thickness is abnormal along its lateral and posterolateral margin on the left. The area of tumor infiltration now extends across the midline posteriorly towards the distal right ureteral insertion, and has a curvilinear length of 13.9 cm with a maximal transverse dimension of approximately 3.1 cm. The measurements previously had been approximately 7.0 cm x 3.2 cm 04/22/18.. Miscellaneous: No inguinal hernias or adenopathy. Bones: No suspicious bony lesions. No vertebral body compression fractures. IMPRESSION: 1. Multiple pulmonary metastatic lesions have been previously documented within the lungs bilaterally, virtually all of which have definitely enlarged in size to a moderate degree as detailed above. 2. A left posterolateral bladder mass impinging on the course of the distal left ureter has further enlarged, with increase in secondary hydronephrosis and hydroureter on the left. 3. No hepatic metastatic lesion is present, in an area previously normal 04/22/18. The current CT is performed without oral and intravenous contrast and the prior comparison CT was performed with intravenous contrast. The certainty of a new hepatic mass is high in this clinical circumstance. Dictated by: Neville Vail M.D. on 08/09/2018 at 10:04 Approved by: Neville Vail M.D. on 08/09/2018 at 10:27
== END ==
PROVIDERS: PCP Family Medicine; Visit Provider Internal Medicine Hematology & Oncology
DX: C67.8 Malignant neoplasm of overlapping sites of bladder (principal); C78.01 Secondary malignant neoplasm of right lung; C78.02 Secondary malignant neoplasm of left lung; N13.30 Unspecified hydronephrosis
CPT/HCPCS: 71250; 74176

== ENCOUNTER → 2018-09-13 10:57 | Outpatient (CLI) | payer MEDICARE, OTHER, SELFPAY ==
--- NOTE | 2018-09-13 | DI.MRI.S_ITS ---
PROCEDURE: MR HEAD/BRAIN WO/W CON INDICATIONS: Brain Cancer TECHNIQUE: Noncontrast axial T1 spin echo, axial T2 fast spin echo, sagittal and axial FLAIR, coronal T2 fast spin echo, axial gradient echo, axial diffusion and ADC through the brain. After the administration of contrast, axial and coronal T1 spin echo with fat saturation through the brain. COMPARISON: [facility], MR, MR HEAD/BRAIN WO CON, 05/20/2018, 15:16. [facility], MR, MR HEAD/BRAIN WO/W CON, 07/08/2018, 11:31. FINDINGS: Image quality: Scanning quality is reduced, secondary to the inability to use the standard head coil. CSF spaces: Basal cisterns are patent. No extra-axial fluid collections. Ventricles are normal in size and shape. Brain: 2 rim-enhancing left parietal masses are again seen, with moderate surrounding vasogenic edema. The more superior lesion measures 12 mm AP by 9 mm transversely by 12 mm craniocaudal. The more inferior lesion measures 10 mm AP by 8 mm transversely, with a craniocaudal extent of 12 mm. These ring-enhancing lesions are clearly decreased in size and to the prior MRI dated 07/08/18. No new masses are seen. No additional areas of abnormal enhancement can be seen. No midline shift. There is cerebral volume loss for age. There is periventricular white matter chronic small vessel ischemic change. The brainstem appears normal. Diffusion-weighted images demonstrate no acute ischemic insults. No chronic ischemic insults. Normal intravascular flow voids are present. Skull and face: Calvarial marrow is normal in signal. Orbits appear normal. Sinuses: No significant paranasal sinus abnormality is seen. There is moderate to severe right-sided and moderate left-sided mastoid air cell fluid seen. IMPRESSION: Clear interval decrease in the sizes of the 2 left parietal ring-enhancing lesions compared to the prior MRI. Abnormally increased fluid within the mastoid air cells, right worse than left. Please correlate with potential clinical findings of mastoiditis. Dictated by: Alden Saenz M.D. on 09/13/2018 at 11:54 Approved by: Alden Saenz M.D. on 09/13/2018 at 12:00
== END ==
PROVIDERS: PCP Family Medicine; Visit Provider Radiology Radiation Oncology
DX: C67.9 Malignant neoplasm of bladder, unspecified (principal); C79.31 Secondary malignant neoplasm of brain
CPT/HCPCS: 70553; A9579

== ENCOUNTER → 2018-09-27 14:40 | Outpatient (CLI) | payer MEDICARE, OTHER, SELFPAY ==
--- NOTE | 2018-09-27 | DI.CT.S_ITS ---
PROCEDURE: CT CHEST WO CON INDICATIONS: Malignant neoplasm of bladder, unspecified TECHNIQUE: Noncontrast 5 mm thick sections acquired from the pulmonary apices to the posterior costophrenic angles. 1 mm lung window, 5 mm thick coronal and sagittal and 7 mm axial MIP reformats were then acquired. For radiation dose reduction, the following was used: automated exposure control, adjustment of mA and/or kV according to patient size. COMPARISON: [facility], CT, CT CHEST W CON, 05/20/2018, 15:44. [facility], CT, CT CHEST ABD PEL W CON, 04/22/2018, 9:06. [facility], CT, CT CHEST ABD PEL W CON, 01/22/2018, 12:07. [facility], CT, CT CHEST ABD PEL W CON, 11/27/2017, 11:20. [facility], CT, CT CHEST ABD PEL W CON, 10/15/2017, 11:47. [facility], CT, CT CHEST ABD PEL W CON, 09/03/2017, 12:35. [facility], CT, CT CHEST ABD PEL W CON, 07/16/2017, 12:58. [facility], CT, CT CHEST ABD PEL WO CON, 08/07/2018, 13:40. FINDINGS: Image quality: Excellent. Lungs and pleura: No acute consolidative opacities. Innumerable bilateral variable sized pulmonary metastases measuring up to 3.1 cm on the left (left upper lobe), and 4.2 cm the right lower lobe. Slight interval enlargement of right lower lobe pulmonary nodule on image 154 measuring 3.0 x 1.7 cm, present 2.4 x 1.5 cm. However, left lower lobe pulmonary nodule appears decreased in size now measuring 2.4 x 1.8 cm, previously 2.6 x 2.2 cm. There is marked decrease in size of right lower lobe pulmonary nodule measuring 7 mm on image 180 series 3, previously 13 mm No pleural effusions or pneumothorax. Central and peripheral airways are patent and normal in caliber. Mediastinum: Heart size is normal. No pericardial effusion. No mediastinal adenopathy by size criteria. Thoracic aorta and central pulmonary arteries are normal in size. Esophagus is normal in caliber. No hiatal hernia. Bones and chest wall: No suspicious bony lesions. No vertebral body compression fractures. Diffuse spondylosis and facet arthropathy No axillary or supraclavicular adenopathy by size criteria. Thyroid gland unremarkable. Abdomen: Left adrenal metastasis measuring 3.8 x 3.6 cm, previously 2.2 x 2.5 cm. There is a new 1 cm right adrenal metastasis. Hepatic metastasis measuring 2.6 x 2.6 cm on image 58 series 2 increased, previously 1.2 cm. Additional hepatic metastasis in the inferior tip of the liver on image 71 is minimally increased IMPRESSION: Mixed response of numerous hepatic, pulmonary and adrenal metastases. There is interval decrease in size of some of the pulmonary nodules however others have increased in size. Interval development of a new right adrenal metastasis since 08/07/18, as well as increase in size of left adrenal metastasis. Hepatic metastases appear progressed. Dictated by: Markie Hamilton M.D. on 09/27/2018 at 17:19 Approved by: Markie Hamilton M.D. on 09/27/2018 at 17:30
== END ==
PROVIDERS: PCP Family Medicine; Visit Provider Internal Medicine Hematology & Oncology
DX: C67.9 Malignant neoplasm of bladder, unspecified (principal)
CPT/HCPCS: 71250